=== PATIENT | female | born 1950 | race Caucasian/White ===

== ENCOUNTER 2016-05-27 09:42 | Inpatient (IN) | payer MEDICAID ==
--- NOTE | 2016-05-27 10:25 | CT ---
EXAMINATION TYPE: CT brain wo con for TPA DATE OF EXAM: 05/27/2016 10:19 AM COMPARISON: NONE HISTORY: Rt arm numbness and speech difficulty CT DLP: 1165 mGycm Automated exposure control for dose reduction was used. FINDINGS: There is an 13.4 mm colloid cyst in the anterior third ventricle. There is no hydronephrosis at this time. There is no mass effect or midline shift. I do not see evidence of intracranial blood. Visualized portions of the paranasal sinuses and mastoids are clear. No depressed skull fracture is s een. 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
[2016-05-27 10:56] LABS: Appearance,Urine Clear (Clear); Bilirubin,Urine Negative (Negative); Glucose,Urine (UA) Negative (Negative); Ketones,Urine Negative (Negative); Leukocyte Esterase,Urine Negative (Negative); Nitrite,Urine Negative (Negative); PH, Urine 5.5 (5.0-8.0); Protein,Urine Negative (Negative); Specific Gravity,Urine 1.002 (1.001-1.035); UA Billing (MACRO vs. MICRO) CHEM; Urobilinogen,Urine <2.0 mg/dL (<2.0)
[2016-05-27 10:59] LABS: Basophils # (A) 0.1 k/uL (0-0.2); Basophils % (A) 1 %; CH 30.8; Eosinophils # (A) 0.2 k/uL (0-0.7); Eosinophils % (A) 2 %; HCT 46.1 % (34.0-46.0); HGB 15.5 gm/dL (11.4-16.0); Luc # (Auto) 0.15; Luc % (Auto) 1; Lymphocytes # (A) 1.8 k/uL (1.0-4.8); Lymphocytes % (A) 17 %; MCH 30.6 pg (25.0-35.0); MCHC 33.7 g/dL (31.0-37.0); Mean Platelet Volume 8.9; Monocytes # (A) 0.5 k/uL (0-1.0); Monocytes % (A) 4 %; Neutrophils # (A) 8.4 k/uL (1.3-7.7); Neutrophils % (A) 76 %; RBC 5.07 m/uL (3.80-5.40); RDW 13.6 % (11.5-15.5); WBC 11.1 k/uL (3.8-10.6); WBC (Perox) 11.26
[2016-05-27 11:09] LABS: Anion Gap 13 mmol/L; Calcium 10.2 mg/dL (8.4-10.2); Carbon Dioxide 21 mmol/L (22-30); Chloride 107 mmol/L (98-107); Glucose 116 mg/dL (74-99); Non-African American GFR(MDRD) >60 (>60 ml/min/1.73 sqM); Sodium 141 mmol/L (137-145); Total Bilirubin 0.8 mg/dL (0.2-1.3); Total Protein 8.1 g/dL (6.3-8.2)
[2016-05-27 11:11] LABS: ALT 30 U/L (9-52); AST 26 U/L (14-36); Blood Urea Nitrogen 11 mg/dL (7-17); Potassium 4.4 mmol/L (3.5-5.1)
[2016-05-27 11:12] LABS: Alkaline Phosphatase 68 U/L (38-126)
--- NOTE | 2016-05-27 11:20 | XR ---
EXAMINATION TYPE: XR chest 2V DATE OF EXAM: 05/27/2016 11:09 AM HISTORY: altered mental status. REFERENCE: NONE. FINDINGS: The lungs are clear. Pleural space are clear. Heart size is normal. There is some unfolding of the thoracic aorta. IMPRESSION: NO ACUTE INTRATHORACIC ABNORMALITY.
[2016-05-27 11:22] LABS: Partial Thromboplastin Time 24.6 sec (22.0-30.0)
--- NOTE | 2016-05-27 12:01 | ED ---
Neuro HPI - General Chief Complaint: Neuro Symptoms/Deficit Stated Complaint: poss cva Time Seen by Provider: 05/27/16 09:56 Source: patient Mode of arrival: wheelchair Limitations: no limitations - History of Present Illness Is the patient presenting with stroke symptoms?: Yes Initial Comments: Patient complains of right-sided weakness, and facial droop. Her symptoms began last night. She noticed that they were worse this morning. Patient denies any fevers or chills. She has no neck pain or stiffness. She has no headache. She has no change in vision or hearing. She has no lightheadedness or dizziness. She denies any recent illnesses or sick contacts. She has no palpitations. She was not doing anything when she began to feel this way. She has taken no medication for her symptoms. Nothing makes her symptoms better or worse. States that she is having trouble writing with the right upper extremity. - Related Data Home Medications: Home Medications Medication Instructions Recorded Confirmed Ibuprofen/Diphenhydramine HCl 2 cap PO HS 05/27/16 05/27/16 [Advil Pm Liqui-Gels] Sinex Nasal [place] 1 spray EA NOSTRIL BID 05/27/16 05/27/16 Allergies/Adverse Reactions: Allergies Allergy/AdvReac Type Severity Reaction Status Date / Time No Known Allergies Allergy Verified 05/27/16 11:41 Review of Systems ROS Statement: Those systems with pertinent positive or pertinent negative responses have been documented in the HPI. ROS Other: All systems not noted in ROS Statement are negative. General Exam Limitations: no limitations General appearance: alert, in no apparent distress Head exam: Present: atraumatic, normocephalic, normal inspection Eye exam: Present: normal appearance, PERRL, EOMI. Absent: scleral icterus, conjunctival injection, periorbital swelling ENT exam: Present: normal exam, mucous membranes moist Neck exam: Present: normal inspection. Absent: tenderness, meningismus, lymphadenopathy Respiratory exam: Present: normal lung sounds bilaterally. Absent: respiratory distress, wheezes, rales, rhonchi, stridor Cardiovascular Exam: Present: regular rate, normal rhythm, normal heart sounds. Absent: systolic murmur, diastolic murmur, rubs, gallop, clicks GI/Abdominal exam: Present: soft, normal bowel sounds. Absent: distended, tenderness, guarding, rebound, rigid Extremities exam: Present: normal inspection, full ROM, normal capillary refill. Absent: tenderness, pedal edema, joint swelling, calf tenderness Back exam: Present: normal inspection Neurological exam: Present: alert, oriented X3, CN II-XII intact Psychiatric exam: Present: normal affect, normal mood Skin exam: Present: warm, dry, intact, normal color. Absent: rash Stroke MDM - Lab Data Result diagrams: 05/27/16 10:45 05/27/16 10:45 Lab Results 05/27/16 05/27/16 05/27/16 Range/Units 10:45 10:45 10:45 WBC 11.1 H (3.8-10.6) k/uL RBC 5.07 (3.80-5.40) m/uL Hgb 15.5 (11.4-16.0) gm/dL Hct 46.1 H (34.0-46.0) % MCV 91.0 (80.0-100.0) fL MCH 30.6 (25.0-35.0) pg MCHC 33.7 (31.0-37.0) g/dL RDW 13.6 (11.5-15.5) % Plt Count 172 (150-450) k/uL Neutrophils % 76 % Lymphocytes % 17 % Monocytes % 4 % Eosinophils % 2 % Basophils % 1 % Neutrophils # 8.4 H (1.3-7.7) k/uL Lymphocytes # 1.8 (1.0-4.8) k/uL Monocytes # 0.5 (0-1.0) k/uL Eosinophils # 0.2 (0-0.7) k/uL Basophils # 0.1 (0-0.2) k/uL PT (9.0-12.0) sec INR (<1.1) APTT (22.0-30.0) sec Sodium 141 (137-145) mmol/L Potassium 4.4 (3.5-5.1) mmol/L Chloride 107 (98-107) mmol/L Carbon Dioxide 21 L (22-30) mmol/L Anion Gap 13 mmol/L BUN 11 (7-17) mg/dL Creatinine 0.70 (0.52-1.04) mg/dL Est GFR (MDRD) Af Amer >60 (>60 ml/min/1.73 sqM) Est GFR (MDRD) Non-Af >60 (>60 ml/min/1.73 sqM) Glucose 116 H (74-99) mg/dL Calcium 10.2 (8.4-10.2) mg/dL Total Bilirubin 0.8 (0.2-1.3) mg/dL AST 26 (14-36) U/L ALT 30 (9-52) U/L Alkaline Phosphatase 68 (38-126) U/L Troponin I (0.000-0.034) ng/mL Total Protein 8.1 (6.3-8.2) g/dL Albumin 4.9 (3.5-5.0) g/dL Urine Color Colorless Urine Appearance Clear (Clear) Urine pH 5.5 (5.0-8.0) Ur Specific [place] 1.002 (1.001-1.035) Urine Protein Negative (Negative) Urine Glucose (UA) Negative (Negative) Urine Ketones Negative (Negative) Urine Blood Negative (Negative) Urine Nitrite Negative (Negative) Urine Bilirubin Negative (Negative) Urine Urobilinogen <2.0 (<2.0) mg/dL Ur Leukocyte Esterase Negative (Negative) Urine Opiates Screen Not Detected (NotDetected) Ur Oxycodone Screen Not Detected (NotDetected) Urine Methadone Screen Not Detected (NotDetected) Ur Propoxyphene Screen Not Detected (NotDetected) Ur Barbiturates Screen Not Detected (NotDetected) U Tricyclic Antidepress Not Detected (NotDetected) Ur Phencyclidine Scrn Not Detected (NotDetected) Ur Amphetamines Screen Not Detected (NotDetected) U Methamphetamines Scrn Not Detected (NotDetected) U Benzodiazepines Scrn Not Detected (NotDetected) Urine Cocaine Screen Not Detected (NotDetected) U Marijuana (THC) Screen Not Detected (NotDetected) 05/27/16 05/27/16 Range/Units 10:45 10:45 WBC (3.8-10.6) k/uL RBC (3.80-5.40) m/uL Hgb (11.4-16.0) gm/dL Hct (34.0-46.0) % MCV (80.0-100.0) fL MCH (25.0-35.0) pg MCHC (31.0-37.0) g/dL RDW (11.5-15.5) % Plt Count (150-450) k/uL Neutrophils % % Lymphocytes % % Monocytes % % Eosinophils % % Basophils % % Neutrophils # (1.3-7.7) k/uL Lymphocytes # (1.0-4.8) k/uL Monocytes # (0-1.0) k/uL Eosinophils # (0-0.7) k/uL Basophils # (0-0.2) k/uL PT 10.0 (9.0-12.0) sec INR 1.0 (<1.1) APTT 24.6 (22.0-30.0) sec Sodium (137-145) mmol/L Potassium (3.5-5.1) mmol/L Chloride (98-107) mmol/L Carbon Dioxide (22-30) mmol/L Anion Gap mmol/L BUN (7-17) mg/dL Creatinine (0.52-1.04) mg/dL Est GFR (MDRD) Af Amer (>60 ml/min/1.73 sqM) Est GFR (MDRD) Non-Af (>60 ml/min/1.73 sqM) Glucose (74-99) mg/dL Calcium (8.4-10.2) mg/dL Total Bilirubin (0.2-1.3) mg/dL AST (14-36) U/L ALT (9-52) U/L Alkaline Phosphatase (38-126) U/L Troponin I <0.012 (0.000-0.034) ng/mL Total Protein (6.3-8.2) g/dL Albumin (3.5-5.0) g/dL Urine Color Urine Appearance (Clear) Urine pH (5.0-8.0) Ur Specific [place] (1.001-1.035) Urine Protein (Negative) Urine Glucose (UA) (Negative) Urine Ketones (Negative) Urine Blood (Negative) Urine Nitrite (Negative) Urine Bilirubin (Negative) Urine Urobilinogen (<2.0) mg/dL Ur Leukocyte Esterase (Negative) Urine Opiates Screen (NotDetected) Ur Oxycodone Screen (NotDetected) Urine Methadone Screen (NotDetected) Ur Propoxyphene Screen (NotDetected) Ur Barbiturates Screen (NotDetected) U Tricyclic Antidepress (NotDetected) Ur Phencyclidine Scrn (NotDetected) Ur Amphetamines Screen (NotDetected) U Methamphetamines Scrn (NotDetected) U Benzodiazepines Scrn (NotDetected) Urine Cocaine Screen (NotDetected) U Marijuana (THC) Screen (NotDetected) - Medical Decision Making Patient presents with right-sided weakness. She does not have any weakness on my examination, but she states that she is having trouble writing with the right hand. CT of the head does not show any acute emergency, and laboratory studies are unremarkable. She will be admitted to the hospital for further evaluation and workup and a neurology consultation. 05/27/16 12:00 Twelve-lead EKG obtained, interpreted by me showing ventricular 102 bpm, normal MO interval and QRS complexes, no ST elevation or depression, interpreted by me as sinus tachycardia without acute ischemia. Past Medical History Past Medical History: No Reported History History of Any Multi-Drug Resistant Organisms: None Reported Past Surgical History: No Surgical Hx Reported Past Psychological History: No Psychological Hx Reported Smoking Status: Current every day smoker Past Alcohol Use History: Daily Past Drug Use History: None Reported Course Vital Signs 05/27/16 05/27/16 05/27/16 09:45 09:50 10:33 Temperature 97.6 F Pulse Rate 109 H 99 96 Respiratory 18 18 16 Rate Blood Pressure 230/120 250/134 234/100 O2 Sat by Pulse 98 97 96 Oximetry 05/27/16 10:59 Temperature Pulse Rate 92 Respiratory 16 Rate Blood Pressure 203/102 O2 Sat by Pulse 96 Oximetry Disposition Clinical Impression: Transient cerebral ischemia Disposition: ADMITTED IP TO THIS HOSP Condition: Fair Time of Disposition: 12:01
[2016-05-27] MEDS ORDERED: NALOXONE 0.4 MG/ML 1 ML VIAL IV PRN (12:02)
[2016-05-27] MEDS ORDERED: ONDANSETRON 4 MG/2 ML VIAL IVP PRN (12:02)
[2016-05-27] MEDS ORDERED: amLODIPine 10 MG TAB PO STA (12:28)
[2016-05-27] MEDS ORDERED: amLODIPine 5 MG TAB PO STA (12:31)
[2016-05-27] MEDS ORDERED: cloNIDine HCL 0.2 MG TAB PO STA (16:44)
[2016-05-27] MEDS ORDERED: LORazepam 0.5 MG TAB PO PRN (17:30)
[2016-05-27] MEDS ORDERED: ACETAMINOPHEN TAB 500 MG TAB PO PRN (17:30)
--- NOTE | 2016-05-27 18:05 | US ---
EXAMINATION TYPE: US carotid duplex BILAT DATE OF EXAM: 05/27/2016 5:11 PM COMPARISON: NONE CLINICAL HISTORY: Pain. right arm numbness x today, high BP EXAM MEASUREMENTS: RIGHT: Peak Systolic Velocity (PSV) cm/sec ----- Right CCA: 66.9 ----- Right ICA: 50.5 ----- Right ECA: 161.4 ICA/CCA ratio: 0.8 RIGHT: End Diastole cm/sec ----- Right CCA: 17.5 ----- Right ICA: 17.4 ----- Right ECA: 35.3 LEFT: Peak Systolic Velocity (PSV) cm/sec ----- Left CCA: 68.0 ----- Left ICA: 94.3 ----- Left ECA: 100.4 ICA/CCA ratio: 1.4 LEFT: End Diastole cm/sec ----- Left CCA: 25.2 ----- Left ICA: 33.5 ----- Left ECA: 28.0 VERTEBRALS (direction of flow): Right Vertebral: Antegrade Left Vertebral: Antegrade Plaque seen in left bulb extending into prox ICA. No significant stenosis. High velocity seen in rig ht ECA. Bilateral wall thickening IMPRESSION: No evidence of hemodynamically significant stenosis at either carotid system.
--- NOTE | 2016-05-27 18:06 | ECHOF ---
Referral Reason:tia MEASUREMENTS -------- HEIGHT: 165.1 cm WEIGHT: 90.7 kg BP: 243/143 IVSd: 1.4 cm (0.6 - 1.1) LVIDd: 4.5 cm (3.9 - 5.3) LVPWd: 1.5 cm (0.6 - 1.1) IVSs: 1.8 cm LVIDs: 2.9 cm LVPWs: 1.8 cm Ao Diam: 3.3 cm (2.0 - 3.7) AV Cusp: 2.2 cm (1.5 - 2.6) LA Diam: 3.0 cm (2.7 - 3.8) MV EXCURSION: 16.659 mm (> 18.000) MV EF SLOPE: 157 mm/s (70 - 150) EPSS: 0.5 cm MV E Tima: 1.24 m/s MV DecT: 168 ms MV A Tima: 0.36 m/s MV E/A Ratio: 3.43 FINDINGS -------- Sinus rhythm. This was a technically adequate study. The left ventricular size is normal. There is moderate concentric left ventricular hypertrophy. Overall left ventricular systolic function is normal with, an EF between 55 - 60 %. The right ventricle is normal in size. The left atrial size is normal. The right atrial size is normal. The aortic valve is trileaflet and appears structurally normal. Trace to mild aortic regurgitation. The mitral valve is normal. Mild mitral regurgitation is present. Mild tricuspid regurgitation present. There is no evidence of pulmonary hypertension. The right ventricular systolic pressure, as measured by Doppler, is {RVSP}. There is no pulmonic regurgitation present. The aortic root size is normal. There is no pericardial effusion. CONCLUSIONS -------- 1. Sinus rhythm. 2. There is no pericardial effusion. 3. There is moderate concentric left ventricular hypertrophy. 4. Overall left ventricular systolic function is normal with, an EF between 55 - 60 %. 5. The left atrial size is normal. 6. Trace to mild aortic regurgitation. 7. Mild mitral regurgitation is present. 8. Mild tricuspid regurgitation present. 9. There is no evidence of pulmonary hypertension. 10. The aortic root size is normal. PORTER BAGGAGE: Samira Edgar RDCS
[2016-05-27 18:31] VITALS: BMI 32.1
[2016-05-27] MEDS ORDERED: FAMOTIDINE 20 MG TAB PO SCH (21:00)
--- NOTE | 2016-05-27 21:11 | HP ---
DATE OF ADMISSION: 05/27/2016 CHIEF COMPLAINT: Weakness of the right-sided and also slurring of speech. 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 The patient thought that would get better. Patient went home and significant other also noticed that the patient had some deviation of the face and some slurring of speech also. This morning also the weakness of the right upper limb persisted and the patient came to [facility] emergency room and was admitted to the hospital for further evaluation and treatment. The patient had a CT scan of the brain which showed large cyst in the anterior aspect of the third ventricle. Chest x-ray showed no acute abnormality. There is no history of any fever, rigors or chills. No history of headache, loss of consciousness or seizures. PAST MEDICAL HISTORY: No significant medical illness. Current medications prior to admission. 1. Sinex Nasal spray. 2. Ibuprofen. 3. Diphenhydramine two capsules q.h.s. Allergies are none. FAMILY HISTORY: History of heart attack in father age 55. SOCIAL HISTORY: History of smoking on a daily basis. History of alcohol once in a while 5 to 6 drinks. REVIEW OF SYSTEMS: ENT: No diminishing hearing. No diminished vision. Otherwise as mentioned earlier. CARDIOVASCULAR: No angina or palpitations. RESPIRATORY: No coughing. No hemoptysis. GI: No nausea and vomiting. GENITOURINARY: No dysuria or hematuria. CENTRAL NERVOUS SYSTEM: As mentioned earlier. Allergy/immunology: No asthma or hayfever. MUSCULOSKELETAL: As mentioned earlier. HEMATOLOGY/ONCOLOGY: No history of anemia. ENDOCRINE: No history of diabetes, hypothyroidism. CONSTITUTIONAL: As mentioned earlier. DERMATOLOGY: Negative. RHEUMATOLOGY: Negative. PSYCHIATRY: As mentioned earlier. PHYSICAL EXAMINATION: Alert and oriented times three. Pulse is 101, blood pressure 215/123, respirations 18, temperature 97.9, pulse ox 94% on room air. HEENT: Conjunctivae normal. Oral mucosa moist. NECK: No jugular venous distention. No carotid bruit. No lymph node enlargement. CARDIOVASCULAR: S1, S2 muffled. No S3, no S4. RESPIRATORY: Breath sounds diminished at the bases. No rhonchi. No crackles. ABDOMEN: Soft, nontender. No mass palpable. Legs: No edema. No swelling. Nervous system: Higher functions as mentioned earlier. Cranial nerves right upper motor neuron facial palsy present otherwise upper limbs are grade 4 power, lower limbs are normal. No further diminished . Gait not tested. SKIN: No ulcer, rash or bleeding. LYMPHATICS: No lymph nodes palpable in the neck, axillae or groin. No sensory abnormalities. JOINTS: There is no active deforming arthropathy. LABS: At this time shows WBC 11.1, hemoglobin 15.5. Glucose 116. UA negative. ASSESSMENT: 1. Acute right hemiplegia caused by left hemispheric lesion, caused by acute cerebrovascular accident and stroke. 2. Dysarthria secondary from stroke. 3. Increased WBC. 4. Increased random blood sugar. 5. History of nicotine dependence. 6. History of ETOH. 7. FULL CODE. RECOMMENDATIONS AND DISCUSSION: In this 65-year-old woman who presented with multiple complex medical issues, we will monitor the patient closely. Continue the current medications and continue symptomatic treatment. Otherwise, at this time, would recommend antiplatelet agents. Complete neurovascular work-up, neurology consultation. hypertension, I would also recommend cardiology evaluation also. Otherwise, the prognosis is guarded because of multiple complex medical issues. Further recommendations to follow. If the initial work-up including carotid Doppler is negative, the patient may be candidate for the rhythm monitoring and LEDY as well. The prognosis is guarded because of multiple complex medical issues. Further recommendations to follow. I would also recommend the patient to follow up with the primary physician in the outpatient setting. Understands and agrees. Patient and significant other understands and agrees. I would also recommend smoking and alcohol cessation also. MTDD
[2016-05-27] MEDS: HEPARIN SODIUM,PORCINE 5,000 UNIT/ML 1 ML VIAL SQ SCH (22:50)
--- NOTE | 2016-05-27 23:26 | P.CNNES ---
History of Present Illness Consult date: 05/27/16 Reason for Consult: Patient with TIA symptoms and right sided weakness. History of Present Illness: This patient is a 65-year-old right-handed white female who apparently yesterday noted difficulty with the use of her hands. She states she was having difficulty using her hands to right and to hold things in the right hand especially. Donn both hands were giving her some difficulty. She also noted some difficulty with her speech which was noted by her boyfriend. She decided to come to the emergency room for further evaluation. She was seen in the ER at [facility] by Dr. Mayer. She was sent for a computed tomography scan of the brain which revealed a large colloid cyst in the third ventricle. No evidence of acute stroke or hemorrhage. Patient underwent a stroke evaluation in the ER by Dr. Mayer. An NIH stroke scale was noted to be 0. She was advised admission to the hospital for further evaluation. Patient is now in her room and states that she has no previous history of TIA or stroke. She denies any headache or symptoms of nausea vomiting. We did review the results of the CAT scan the brain with her and the finding of a call light system. She states she has never been told of any abnormality on imaging studies in the past. She is not clear if she has had a computed tomography scan of the brain previously. Patient was placed on aspirin yesterday and today. She is noted to have right-sided facial droop on exam. We have recommended a complete stroke evaluation for the patient. Her stroke risk factors include hypertension. She was hypertensive in the ER as well. We have recommended close monitoring of her blood pressures during this admission. The patient is now admitted and neurology has been consulted for further evaluation and recommendations. Review of Systems Constitutional: Denies chills, Denies fever Eyes: denies blurred vision, denies pain Ears, nose, mouth and throat: Denies headache, Denies sore throat Cardiovascular: Denies chest pain, Denies shortness of breath Respiratory: Denies cough Gastrointestinal: Denies abdominal pain, Denies diarrhea, Denies nausea, Denies vomiting Genitourinary: Denies dysuria, Denies hematuria Musculoskeletal: Denies myalgias Integumentary: Denies pruritus, Denies rash Neurological: Reports change in mentation, Reports change in speech, Reports confusion, Denies numbness, Denies weakness Psychiatric: Denies anxiety, Denies depression Endocrine: Denies fatigue, Denies weight change Past Medical History Past Medical History: No Reported History History of Any Multi-Drug Resistant Organisms: None Reported Past Surgical History: No Surgical Hx Reported Past Psychological History: No Psychological Hx Reported Smoking Status: Current every day smoker Past Alcohol Use History: Daily Past Drug Use History: None Reported Medications and Allergies Home Medications Medication Instructions Recorded Confirmed Type Ibuprofen/Diphenhydramine HCl 2 cap PO HS 05/27/16 05/27/16 History [Advil Pm Liqui-Gels] Sinex Nasal [place] 1 spray EA NOSTRIL BID 05/27/16 05/27/16 History Allergies Allergy/AdvReac Type Severity Reaction Status Date / Time No Known Allergies Allergy Verified 05/27/16 11:41 Physical Examination - Vital Signs Vital Signs: Vital Signs Temp Pulse Resp BP Pulse Ox 05/27/16 17:00 97 16 205/112 97 05/27/16 15:26 97.9 F 101 H 18 215/126 94 L 05/27/16 15:00 104 H 18 215/100 96 05/27/16 14:00 101 H 18 207/97 97 05/27/16 13:26 89 16 213/98 93 L 05/27/16 12:26 96 17 222/94 94 L - Constitutional General appearance: average body habitus, cooperative - EENT EENT: PERRL, mucous membranes moist - Respiratory Respiratory: lungs clear, normal breath sounds - Cardiovascular Cardiovascular: regular rate, normal S1, normal S2 Extremities: no peripheral edema bilaterally - Gastrointestinal Gastrointestinal: normoactive bowel sounds - Integumentary Integumentary: normal - Neurologic Cranial nerve examination: PERRL, EOMI, VFF, V1/V2/V3 grossly intact, tongue midline, intact gag reflex, intact corneal reflex, facial droop (Patient has a right upper motor neuron facial weakness.), normal palatal elevation Speech examination: intact Sensorimotor examination: intact Motor examination - right side: 4/5: biceps, triceps, wrist flexion, wrist extension, 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, hip flexors, knee extensors, dorsiflexion, toe extension (EHL) , plantarflexion Motor examination - left side: 5/5: biceps, triceps, wrist flexion, wrist extension, 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, hip flexors, knee extensors, dorsiflexion, toe extension (EHL) , plantarflexion Detailed sensory examination: intact Reflexes: 1+: ankle, bicep, knee, tricep - Musculoskeletal Musculoskeletal: no pain - Psychiatric Psychiatric: mood/affect appropriate, cooperative Results - Laboratory Findings CBC and BMP: 05/27/16 10:45 05/27/16 10:45 Assessment and Plan (1) Acute ischemic left middle cerebral artery (MCA) stroke Status: Acute Code(s): I63.512 - CEREB INFRC D/T UNSP OCCLS OR STENOS OF LEFT MID CEREB ART (2) Dysarthria Status: Acute Code(s): R47.1 - DYSARTHRIA AND ANARTHRIA (3) Uncontrolled hypertension Status: Acute Code(s): I10 - ESSENTIAL (PRIMARY) HYPERTENSION (4) TIA (transient ischemic attack) Status: Acute Code(s): G45.9 - TRANSIENT CEREBRAL ISCHEMIC ATTACK, UNSPECIFIED Plan: This patient is a 65-year-old female admitted with acute symptoms of right- sided facial droop and right hand weakness. She was brought into the emergency room today for further evaluation. She was seen in the ER by Dr. Mayer. His NIH stroke scale revealed her to have a score of 0. She underwent computed tomography scan of the brain in the ER which revealed no acute stroke or hemorrhage. There is evidence of a large colloid cyst in the third ventricle. No evidence of hydrocephalus. The patient was subsequent admitted to the hospital. Her neurological exam findings reveal her to have a right upper motor neuron facial weakness as well as right sided drift. Her clinical findings suggest probable acute left MCA stroke. We've recommended a complete stroke evaluation for the patient. Would recommend that she be placed on aspirin daily for secondary stroke prevention. Her overall prognosis at this time remains guarded. Time with Patient: Greater than 30
[2016-05-28 05:48] LABS: Basophils # (A) 0.1 k/uL (0-0.2); Basophils % (A) 1 %; CH 30.5; CHCM 33.7; Eosinophils # (A) 0.2 k/uL (0-0.7); Eosinophils % (A) 2 %; HCT 44.4 % (34.0-46.0); HDW 2.49; HGB 14.9 gm/dL (11.4-16.0); Luc # (Auto) 0.17; Luc % (Auto) 2; Lymphocytes # (A) 2.4 k/uL (1.0-4.8); Lymphocytes % (A) 23 %; MCH 30.4 pg (25.0-35.0); MCHC 33.4 g/dL (31.0-37.0); MCV 90.8 fL (80.0-100.0); Mean Platelet Volume 7.9; Monocytes # (A) 0.4 k/uL (0-1.0); Monocytes % (A) 4 %; Neutrophils # (A) 7.1 k/uL (1.3-7.7); Neutrophils % (A) 68 %; RBC 4.89 m/uL (3.80-5.40); RDW 13.5 % (11.5-15.5); WBC 10.4 k/uL (3.8-10.6); WBC (Perox) 11.12
[2016-05-28 05:59] LABS: Anion Gap 13 mmol/L; Blood Urea Nitrogen 11 mg/dL (7-17); Calcium 9.7 mg/dL (8.4-10.2); Carbon Dioxide 23 mmol/L (22-30); Chloride 105 mmol/L (98-107); Cholesterol 303 mg/dL (<200); Glucose 108 mg/dL (74-99); HDL Cholesterol 54 mg/dL (40-60); Non-African American GFR(MDRD) >60 (>60 ml/min/1.73 sqM); Potassium 4.1 mmol/L (3.5-5.1); Sodium 141 mmol/L (137-145); Triglycerides 390 mg/dL (<150)
[2016-05-28] MEDS: HEPARIN SODIUM,PORCINE 5,000 UNIT/ML 1 ML VIAL SQ SCH ×2 (08:35→21:12)
[2016-05-28] MEDS: PANTOPRAZOLE 40 MG TABLET PO SCH (08:35)
[2016-05-28] MEDS: amLODIPine 10 MG TAB PO SCH (08:35)
[2016-05-28] MEDS: ASPIRIN 81 MG CHEW PO SCH (10:27)
[2016-05-28] MEDS: ATORVASTATIN 80 MG TAB PO SCH (10:28)
[2016-05-28] MEDS: LISINOPRIL 5 MG TAB PO SCH ×2 (10:31→21:13)
[2016-05-28] MEDS: HYDROCHLOROTHIAZIDE 25 MG TAB PO SCH (10:31)
--- NOTE | 2016-05-28 13:50 | CONS ---
DATE OF CONSULTATION: Mrs. Escalona is a 65-year-old female who does not follow with a physician, who presented with drooping on the right side of face and some weakness in the right upper extremity, was diagnosed with CVA. Cardiology consultation was requested for further cardiac evaluation. Patient is average in her exercise tolerance, has no exertional chest pain. He has no prior history of cardiac disease. She denies any arrhythmia. She has no significant dyspnea on exertion. She has no palpitation. No dizziness. No syncope. No PND, orthopnea. No peripheral edema. Her coronary risk factor is remarkable for smoking. Her lipid profile was quite abnormal and her blood pressure was quite elevated on presentation, although she has not been seen seeing a physician or taking any medication. SOCIAL HISTORY: She drinks alcohol 4 to 5 drinks every other day, smokes at least a pack a day. Her medications at home are ibuprofen. REVIEW OF SYSTEMS: RESPIRATORY SYSTEM: She has no documented obstructive lung disease, yet she smokes on a regular basis, does not exercise regularly. GI SYSTEM: No recent GI bleeding. No peptic ulcer disease. SYSTEM: No dysuria or hematuria. NERVOUS SYSTEM: No history of stroke or seizure in the past. PHYSICAL EXAMINATION: She is a 65-year-old female, alert, oriented, in no apparent distress. Her blood pressure quite elevated in the range of 180/100 with the heart rate in the 90s. HEAD: Normocephalic. EYES: Sclerae nonicteric. NECK: No bruit. LUNGS: Clear to auscultation. HEART: Regular rate and rhythm, S1 and S2, no S3 with systolic murmur. No diastolic murmur. No rub. ABDOMEN: Soft, nontender. Positive bowel sounds. No organomegaly. EXTREMITIES: No edema. Intact distal pulses. Lab data revealed a troponin less than 0.012, cluster of 303, LDL of 171, BUN and creatinine of 11 and 0.65. Hemoglobin of 14.9. Potassium 4.1. EKG revealed sinus mechanism with no acute changes and left axis deviation. Carotid duplex scan revealed no evidence of high-grade stenosis. Echocardiogram revealed preserved left ventricular size and systolic function with mild mitral and tricuspid regurgitation. CONCLUSION: 1. Cerebrovascular accident with right hand weakness and drooping in the right side of face. 2. Hypertension, untreated, uncontrolled. 3. Hyperlipidemia. 4. Chronic tobacco use. 5. Chronic alcohol intake. RECOMMENDATION: I will add to her regimen an COLT inhibitor to optimize her blood pressure control as well as hydrochlorothiazide. I will add a statin. The patient has no evidence to suggest arrhythmia. No paradoxical emboli. At this time, I will follow her blood pressure, increase her level of activity and depending on her progress, further recommendation will be made. The importance of smoking and alcohol cessation was discussed with the patient. Thank you for this consult. Will follow with you.
[2016-05-28] MEDS: ALPRAZolam 0.25 MG TAB PO PRN ×2 (15:17→21:16)
--- NOTE | 2016-05-28 15:54 | P.PN ---
Subjective This patient is a 65-year-old female who was admitted to hospital yesterday with possible acute TIA symptoms. Patient's initial symptoms was related to right hand weakness. She was unable to use her right hand to do simple things at home. She was also noted to have some slurring of her speech. She was brought into the emergency room and was seen by Dr. Mayer. His evaluation revealed her NIH stroke scale to be 0. 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 No other abnormalities or acute stroke was identified. Patient has no history of headaches or nausea vomiting symptoms. On examination yesterday she was noted to have right facial droop as well as right arm drift. These findings suggest possibility of acute stroke. She is awaiting to undergo MRI of the brain for further evaluation. She has been started on aspirin for secondary stroke prevention. Her neurological exam findings are unchanged from yesterday. 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 She seems to be doing about the same neurologically today. We will continue close neurological follow-up for the patient during this admission. Objective - Vital Signs Vital signs: Vital Signs Temp 97.9 F 05/28/16 08:00 Pulse 78 05/28/16 10:30 Resp 16 05/28/16 10:30 BP 174/107 05/28/16 10:30 Pulse Ox 97 05/28/16 08:00 Intake & Output 05/27/16 05/28/16 05/28/16 18:59 06:59 18:59 Intake Total 0 120 Balance 0 120 Weight 90.1 kg 78.7 kg Intake: Oral 0 120 Other: Voiding Method Toilet # Voids 0 2 0 - Exam Physical examination: PHYSICAL EXAMINATION: Patient is resting comfortably in bed. VITAL SIGNS: Blood pressure is [174/107]. Heart rate is [78]. Respiration is [16 ]. Temperature is [97.9]. HEENT: Head is atraumatic, neck is supple, there were no carotid bruits. CHEST: Lungs are clear to auscultation and percussion. CARDIAC: S1, S2 normal rate and rhythm. There is no murmur. ABDOMEN: Soft and nontender. Bowel sounds are present. EXTREMITIES: There is no pedal edema. Peripheral pulses are present. Neurological examination: Patient's neurological examination remains unchanged from yesterday. - Labs CBC & Chem 7: 05/28/16 05:35 05/28/16 05:35 Labs: Abnormal Lab Results - Last 24 Hours (Table) 05/28/16 Range/Units 05:35 Glucose 108 H (74-99) mg/dL Triglycerides 390 H (<150) mg/dL Cholesterol 303 H (<200) mg/dL LDL Cholesterol, Calc 171 H (0-99) mg/dL Assessment and Plan (1) Acute ischemic left middle cerebral artery (MCA) stroke Status: Acute Code(s): I63.512 - CEREB INFRC D/T UNSP OCCLS OR STENOS OF LEFT MID CEREB ART (2) Dysarthria Status: Acute Code(s): R47.1 - DYSARTHRIA AND ANARTHRIA (3) Uncontrolled hypertension Status: Acute Code(s): I10 - ESSENTIAL (PRIMARY) HYPERTENSION (4) TIA (transient ischemic attack) Status: Acute Code(s): G45.9 - TRANSIENT CEREBRAL ISCHEMIC ATTACK, UNSPECIFIED Plan: This patient is a 65-year-old female who was admitted to the hospital with right hand weakness and possible TIA. Patient was seen in neurology consultation yesterday. She underwent a initial evaluation in the emergency room by Dr. Mayer. Her NIH stroke scale was noted to be 0. 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 No evidence of acute stroke or hemorrhage. Patient's neurological findings yesterday revealed right facial droop as well as right pronator drift. She is being evaluated for possible acute left hemispheric stroke. She does have evidence of uncontrolled hypertension which is to be closely monitored. We will continue further stroke workup for this patient. She is scheduled to have MRI of the brain done tomorrow and we will need to review these test results with the patient. Her neurological examination is unchanged from yesterday. She is to continue on aspirin daily for secondary stroke prevention. Her overall prognosis at this time remains guarded.
--- NOTE | 2016-05-28 16:03 | PN ---
DATE OF SERVICE: 05/28/2016 This is a 65-year-old gentleman admitted because of the right side of the body has left cerebral infarction, possibly the carotid Doppler showed significant plaque formation in the bulb on the left IC but no hemodynamically significant stenosis. A 2-D echo with a Doppler showed ejection fraction of 55% to 60% with mild valvular abnormalities and left ventricular hypertrophy. The EKG showed sinus tachycardia and left atrial enlargement, ST-T changes also. Past medical history reviewed. REVIEW OF SYSTEMS: CARDIOVASCULAR: No angina or palpitation. GI: As mentioned earlier. : No dysuria. NERVOUS SYSTEM: No focal deficits. Current medications: 1. Tylenol 500 mg q.6. 2. Xanax 0.25. 3. Norvasc. 4. Aspirin 81 mg daily. 5. Heparin 5000 subQ b.i.d. 6. HydroDiuril 25 mg daily. 7. Zestril 5 mg b.i.d. 8. Ativan. 9. Narcan. 10. Protonix. PHYSICAL EXAMINATION: Patient is alert and oriented x3. Pulse 97, blood pressure 181/01, respiration 16, temperature 97.8, pulse ox 97% on room air. HEENT: Conjunctivae normal. Oral mucosa moist. NECK: No jugular venous distension, no lymph node enlargement. CARDIOVASCULAR SYSTEM: S1, S2, muffled. RESPIRATORY: Breath sounds diminished at the bases. No rhonchi. No crackles. Abdomen is soft, nontender. No mass palpable. EXTREMITIES: Legs no edema, no swelling. NERVOUS SYSTEM: Higher function as mentioned earlier. Cranial nerves, right upper motor neuron facial palsy present, because of the right upper limb grade 4+ in the right lower lobe; otherwise, no incoordination, no sensory abnormalities. Otherwise, joints, no active deformity or arthropathy. LYMPHATICS: No lymph node enlargement in the neck, axillae or groin. SKIN: No ulcer, rash or bleeding. LABS: WBC is 10.4, hemoglobin is 14.9 and glucose 108, triglycerides 390 and cholesterol 303 and LDL is 171. HDL is 54. ASSESSMENT: 1. Acute right hemiplegia caused by left hemispheric circulation, possibly caused by acute cerebrovascular accident and stroke. 2. Dysarthria secondary to stroke. 3. Hyperlipidemia. 4. Hypertriglyceridemia. 5. Increased WBC. 6. Increased random blood sugar. 7. History of nicotine dependence. 8. History of Ethyl alcohol. 9. FULL CODE. 10. Increased random blood sugar. RECOMMENDATION: In this 65-year-old woman who presented with multiple complex medical issues, will monitor the patient closely, continue the current medications, continue with the symptomatic treatment. Continue with aspirin 81, Lipitor 80 mg. Cardiology input appreciated. Will monitor blood pressure closely. Otherwise, follow closely with Neurology. Prognosis guarded. Neurovascular work-up will be continued including MRI. Guarded prognosis. Further recommendations to follow. Significant plaque on the left side was noted even though there is no significant stenosis. Once again, guarded prognosis and further recommendations to follow.
[2016-05-28 20:57] LABS: Glucose,Whole Blood 114 mg/dL (75-99)
[2016-05-29] MEDS: PANTOPRAZOLE 40 MG TABLET PO SCH (06:51)
[2016-05-29 07:07] LABS: Anion Gap 14 mmol/L; Blood Urea Nitrogen 14 mg/dL (7-17); Calcium 10.2 mg/dL (8.4-10.2); Carbon Dioxide 23 mmol/L (22-30); Chloride 102 mmol/L (98-107); Glucose 95 mg/dL (74-99); Non-African American GFR(MDRD) >60 (>60 ml/min/1.73 sqM); Sodium 139 mmol/L (137-145)
[2016-05-29] MEDS: HEPARIN SODIUM,PORCINE 5,000 UNIT/ML 1 ML VIAL SQ SCH ×2 (08:12→19:53)
[2016-05-29] MEDS: ATORVASTATIN 80 MG TAB PO SCH (08:13)
[2016-05-29] MEDS: LISINOPRIL 5 MG TAB PO SCH ×2 (08:13→20:39)
[2016-05-29] MEDS: ASPIRIN 81 MG CHEW PO SCH (08:13)
[2016-05-29] MEDS: amLODIPine 10 MG TAB PO SCH (08:13)
[2016-05-29] MEDS: HYDROCHLOROTHIAZIDE 25 MG TAB PO SCH (08:13)
[2016-05-29] MEDS: ALPRAZolam 0.25 MG TAB PO PRN ×3 (08:19→23:01)
--- NOTE | 2016-05-29 12:37 | MR ---
EXAMINATION TYPE: MR brain wo con DATE OF EXAM: 05/29/2016 12:21 PM COMPARISON: CT brain from 2 days ago HISTORY: Acute left hemispheric stroke, Rt hand weakness on admission 2 days ago TECHNIQUE: Multiplanar, multisequence imaging of the brain and brainstem is performed without IV cont rast. FINDINGS: Diffusion weighted images small oval area of increased signal on diffusion weighted images with the d iminished signal on ADC mapping involving the anterolateral left thalamus that shows T2 hyperintensit y and T1 hypointensity measuring roughly 8 x 3 mm just posterior to the left basal ganglia seen best on image 120 series 305 consistent with evolving acute lacunar infarct. There is no worrisome extraaxial fluid collection or significant white matter signal abnormality. Th e ventricular system and cisternal spaces are normal in size and appearance. The brain volume is age appropriate. There is redemonstration of T1 hyperintense and T2 hypointense 9 mm lesion in the anter ior aspect of the third ventricle at level of foramen of Diaz consistent with colloid cyst. No obst ructive hydrocephalus is clearly identified. No significant change from recent CT is seen. There are scattered foci of T2 hyperintensity seen throughout the white matter bilaterally. Approximately 50 sc attered small lesions are present. Lesions are nonspecific in appearance and distribution. Midline structures demonstrate normal morphology. The craniocervical junction appears within normal limits. Normal vascular flow voids are present. The visualized sinuses are clear and the globes are i ntact. IMPRESSION: 1. Evolving acute lacunar infarct left anterolateral thalamus as detailed above. 2. Moderate nonspecific white matter changes presumed on basis of product of chronic small vessel isc hemic change in patient of this age. 3. A 1 cm intraventricular lesion consistent with colloid cyst redemonstrated. No obstructive hydroce phalus noted. A Yellow message has been communicated to Manuel Kaplan MD~[id number] via the [employer] system on 05/29/2016 12:35 PM, Message ID [id number].
--- NOTE | 2016-05-29 15:08 | FL ---
EXAMINATION TYPE: FL barium swallow w video DATE OF EXAM: 05/29/2016 2:52 PM MODIFIED SWALLOW / DEGLUTITION STUDY CLINICAL HISTORY: Dysphagia. Acute CVA. TECHNIQUE: Deglutition study is performed utilizing thin liquid barium, honey and nectar thick liqui d barium, barium thick applesauce, and barium coated cracker. A total of 1 minute 90 minutes of fluor oscopic time was utilized during procedure. COMPARISON: None. FINDINGS: The oral and pharyngeal phases show satisfactory initiation and propagation with all modali ties tested. Normal mastication is seen with solid modalities tested. There is no evidence of penet ration or aspiration with any modality tested. No significant pharyngeal residue was appreciated. IMPRESSION: Normal deglutition study. Please refer to speech therapist notes for further details if necessary.
--- NOTE | 2016-05-29 18:36 | PN ---
DATE OF SERVICE: 05/29/2016 This 65-year-old woman was admitted with significant stroke of the right upper limb as well as face. She is scheduled to have an MRA today. Seen and evaluated the patient along with the nurse practitioner. Please refer to the nurse practitioner's notes and impressions documented as a scribe for further information. Further recommendations to follow.
--- NOTE | 2016-05-29 18:52 | P.PN ---
Subjective Date of service 05/29/2016. Progress note dictated for Dr. Flores. Interval history: This is a 65-year-old female admitted with acute CVA, hypertension and multiple other medical issues in a patient with ongoing nicotine use as well as daily alcohol. Evaluated by neurology with neuro workup in progress. Underwent MRI of the brain and modified barium swallow with results pending. Evaluated by cardiology, recommendations noted. Objective - Vital Signs Vital signs: Vital Signs Temp 97.5 F L 05/28/16 20:00 Pulse 73 05/29/16 08:00 Resp 16 05/29/16 11:32 BP 139/79 05/29/16 08:00 Pulse Ox 96 05/29/16 08:00 Intake & Output 05/28/16 05/29/16 05/29/16 18:59 06:59 18:59 Intake Total 120 0 790 Balance 120 0 790 Weight 77.5 kg Intake: IV 0 NS 0 Oral 120 790 Other: Voiding Method Toilet # Voids 0 1 # Bowel Movements 0 - Exam PHYSICAL EXAM: VITAL SIGNS: As above GENERAL: [Sitting up in bed, no acute distress] HEENT: [Pupils equal conjunctiva normal. Mild right facial palsy present] NECK: [Supple, no JVD, no lymph node enlargement] RESPIRATORY EFFORT:[Normal] LUNGS: [Clear to auscultation, no wheezes crackles or rhonchi] CARDIOVASCULAR[regular S1 and S2, no murmurs rubs or gallops, no edema] GI: [Abdomen soft, nontender, positive bowel sounds.] PSYCH: [Alert and oriented -3, mood and affect normal.] NEURO: [No focal deficits, speech intact, right upper extremity grade 4+, minimal right facial palsy present as mentioned above. Otherwise, Strength and sensation grossly intact.] - Labs CBC & Chem 7: 05/28/16 05:35 05/29/16 05:56 Labs: Abnormal Lab Results - Last 24 Hours (Table) 05/28/16 Range/Units 20:37 POC Glucose (mg/dL) 114 H (75-99) mg/dL Assessment and Plan Plan: 1. Acute right atrial fibrillation secondary to left hemispheric circulation caused by acute CVA, stroke 2. [Dysarthria secondary to stroke]. 3. [Hyperlipidemia]. 4. [Hypertriglyceridemia]. 5. [Leukocytosis]. 6. [Ongoing nicotine abuse]. 7. [Daily alcohol consumption]. 8. Hypertension, untreated, uncontrolled Plan: Continue on current medication regime , aspirin, statin, monitoring and symptomatic treatment. Close monitoring of blood pressure. Follow closely with multiple consults. Neuro workup in progress, final results of MBS and MRI pending. Discharge planning in progress for tomorrow, tentatively. Prognosis guarded given multiple complex medical issues. Smoking and alcohol cessation readdressed. The impression and plan of care has been dictated as directed. : I performed a H&P examination of this patient and discussed the same with the dictator. I agree with the dictator's note. Any additional findings/opinions/ etc. will be noted.
--- NOTE | 2016-05-29 22:18 | P.PN ---
Subjective This patient is a 65-year-old female who was admitted to hospital yesterday with possible acute TIA symptoms. Patient's initial symptoms was related to right hand weakness. She was unable to use her right hand to do simple things at home. She was also noted to have some slurring of her speech. She was brought into the emergency room and was seen by Dr. Mayer. His evaluation revealed her NIH stroke scale to be 0. 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 No other abnormalities or acute stroke was identified. Patient has no history of headaches or nausea vomiting symptoms. On examination yesterday she was noted to have right facial droop as well as right arm drift. These findings suggest possibility of acute stroke. She is awaiting to undergo MRI of the brain for further evaluation. She has been started on aspirin for secondary stroke prevention. Her neurological exam findings are unchanged from yesterday. 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 She seems to be doing about the same neurologically today. Patient underwent MRI of the brain today which was reviewed. MRI does reveal evidence of any acute lacunar infarct in the left anterior thalamus region. This is consistent with her findings of right-sided hemiparesis. She also underwent a barium swallow study which was normal. Patient to continue with ongoing PT/OT evaluation. We reviewed the results of the MRI today with the patient in detail. She is to continue on aspirin for secondary stroke prevention. We will continue close neurological follow-up for the patient during this admission. Her overall prognosis at this time remains guarded. Objective - Vital Signs Vital signs: Vital Signs Temp 97.5 F L 05/28/16 20:00 Pulse 67 05/29/16 20:00 Resp 17 05/29/16 20:00 BP 130/82 05/29/16 20:00 Pulse Ox 100 05/29/16 20:00 Intake & Output 05/29/16 05/29/16 05/30/16 06:59 18:59 06:59 Intake Total 0 790 0 Balance 0 790 0 Weight 77.5 kg Intake: IV 0 0 NS 0 0 Oral 790 Other: Voiding Method Toilet # Voids 1 - Exam Physical examination: PHYSICAL EXAMINATION: Patient is resting comfortably in bed. VITAL SIGNS: Blood pressure is [130/82]. Heart rate is [67]. Respiration is [17] . Temperature is [97.5]. HEENT: Head is atraumatic, neck is supple, there were no carotid bruits. CHEST: Lungs are clear to auscultation and percussion. CARDIAC: S1, S2 normal rate and rhythm. There is no murmur. ABDOMEN: Soft and nontender. Bowel sounds are present. EXTREMITIES: There is no pedal edema. Peripheral pulses are present. Neurological examination: Patient's neurological examination remains unchanged from yesterday. Patient continues to demonstrate right-sided facial weakness. Right hand dark room attendant strength slightly improved. - Labs CBC & Chem 7: 05/28/16 05:35 05/29/16 05:56 Assessment and Plan (1) Acute ischemic left middle cerebral artery (MCA) stroke Status: Acute Code(s): I63.512 - CEREB INFRC D/T UNSP OCCLS OR STENOS OF LEFT MID CEREB ART (2) Dysarthria Status: Acute Code(s): R47.1 - DYSARTHRIA AND ANARTHRIA (3) Uncontrolled hypertension Status: Acute Code(s): I10 - ESSENTIAL (PRIMARY) HYPERTENSION (4) TIA (transient ischemic attack) Status: Acute Code(s): G45.9 - TRANSIENT CEREBRAL ISCHEMIC ATTACK, UNSPECIFIED Plan: This patient is a 65-year-old female initially admitted to Hospital with symptoms of right hand weakness and dysarthric speech. She has undergone a complete stroke evaluation today. She was able to complete MRI of the brain which reveals evidence of a acute lacunar infarct in the left thalamus. This is consistent with her neuro deficits on examination. Patient underwent barium swallow study which was normal. We are recommending patient to continue on aspirin daily for secondary stroke prevention. Patient should be evaluated by PT/OT and speech therapy for further assessment. We will continue close neuro checks for this patient. Results of the MRI and barium swallow study was reviewed today with the patient in detail. Her overall prognosis at this time remains guarded.
[2016-05-30] MEDS: PANTOPRAZOLE 40 MG TABLET PO SCH (06:42)
[2016-05-30] MEDS: amLODIPine 10 MG TAB PO SCH (09:22)
[2016-05-30] MEDS: HYDROCHLOROTHIAZIDE 25 MG TAB PO SCH (09:22)
[2016-05-30] MEDS: HEPARIN SODIUM,PORCINE 5,000 UNIT/ML 1 ML VIAL SQ SCH (09:22)
[2016-05-30] MEDS: ASPIRIN 81 MG CHEW PO SCH (09:22)
[2016-05-30] MEDS: LISINOPRIL 5 MG TAB PO SCH (09:22)
[2016-05-30] MEDS: ATORVASTATIN 80 MG TAB PO SCH (09:22)
[2016-05-30 09:34] VITALS: BP 137/85; PULSE 92; RESP 18; TEMP 96.7
[2016-05-30] MEDS: ALPRAZolam 0.25 MG TAB PO PRN (10:13)
--- NOTE | 2016-05-30 14:08 | P.PN ---
Subjective Principal diagnosis: Acute CVA This is a 65-year-old history of hypertension, hyperlipidemia, nicotine dependence, and EtOH use, who presented to the hospital with symptoms of right facial droop and right upper extremity weakness. MRI of the brain did reveal an acute lacunar infarct. Echocardiogram with Doppler study was performed which revealed an ejection fraction of 55-60%. Hemodynamically stable. Planning on being discharged home today. Patient has much more strength in her right hand, right facial droop persists however improved. Objective - Vital Signs Vital signs: Vital Signs Temp 96.7 F L 05/30/16 09:22 Pulse 92 05/30/16 09:22 Resp 18 05/30/16 09:22 BP 137/85 05/30/16 09:22 Pulse Ox 93 L 05/30/16 09:22 Intake & Output 05/29/16 05/30/16 05/30/16 18:59 06:59 18:59 Intake Total 790 0 Balance 790 0 Weight 78.2 kg Intake: IV 0 NS 0 Oral 790 Other: Voiding Method Toilet Toilet # Voids 1 1 - Exam PHYSICAL EXAMINATION: HEENT: Head is atraumatic, normocephalic. Pupils equal, round. Neck is supple. There is no elevated jugular venous pressure. HEART EXAMINATION: Heart S1, S2 normal. No murmur or gallop heard. CHEST EXAMINATION: Lungs are clear to auscultation and precussion. No chest wall tenderness is noted on palpation or with deep breathing. ABDOMEN: Soft, nontender. Bowel sounds are heard. No organomegaly noted. EXTREMITIES: 2+ peripheral pulses with no evidence of peripheral edema and no calf tenderness noted. NEUROLOGIC patient is awake, alert and oriented -3. Mild right hand weakness persists, mild right facial droop . - Labs CBC & Chem 7: 05/28/16 05:35 05/29/16 05:56 Assessment and Plan (1) Hyperlipemia Status: Chronic (2) Nicotine dependence Status: Chronic (3) Acute ischemic left middle cerebral artery (MCA) stroke Status: Acute (4) Uncontrolled hypertension Status: Acute Plan: From cardiology's perspective, patient may be able to be discharged home today. We will make her a follow-up appointment to see Dr. Camp in the office post discharge. DNP note has been reviewed, I agree with a documented findings and plan of care. Patient was seen and examined.
--- NOTE | 2016-05-31 10:55 | DS ---
DATE OF ADMISSION: 05/27/2016 DATE OF DISCHARGE: 05/30/2016 FINAL DIAGNOSES: 1. Acute right hemiparesis secondary to left hemispheric lesion and acute cerebrovascular accident. 2. Dysarthria secondary to stroke. 3. Hyperlipidemia. 4. Hypertriglyceridemia. 5. Leukocytosis. 6. Ongoing nicotine dependence. 7. History of EtOH. 8. Hypertension, uncontrolled. 9. FULL CODE. 10. Hypertensive urgency. DISCHARGE DISPOSITION: The patient will be discharged in stable condition with guarded prognosis. HISTORY OF PRESENT ILLNESS: This 65-year-old woman with a past medical history of multiple medical problems was admitted with features of acute stroke involving the right side of the face and right arm. Patient was treated symptomatically. MRI showed corresponding lesion in the left hemisphere treated with antiplatelet agents. On exam, vitals are stable. CARDIOVASCULAR: S1 and S2 muffled. ABDOMEN: Soft. NERVOUS SYSTEM: Minimal weakness of the right arm and as well as dysarthria also present, much improved. Cholesterol is 303. LDL is 171. Dr. Kaplan saw the patient and cleared the patient for discharge. The following advice and medications are recommended: 1. Diet is cardiac, low fat, low cholesterol. 2. Follow up with Dr. Kaplan in 2 to 3 days. 3. Follow up with Dr. Barba in 2 to 3 days. Medications are: 1. Nasal spray as before. 2. Aspirin 81 mg p.o. daily. 3. Lipitor 80 mg p.o. daily. 4. HydroDIURIL 25 mg p.o. daily. 5. Ativan 0.5 mg t.i.d. 6. Zestril 5 mg p.o. b.i.d. 7. Protonix 40 mg daily. 8. Norvasc 10 mg p.o. daily. Once again, the patient will be discharged in a stable condition with guarded prognosis.
--- NOTE | 2016-06-02 22:33 | EEG ---
DATE OF SERVICE: 05/29/2016 INDICATIONS FOR EXAMINATION: This patient is a 65-year-old female being evaluated for right-sided hemiparesis and right-sided facial droop. The patient with possible acute stroke findings. AGE: 65Y EEG FINDINGS: A routine 21-channel, awake digital EEG recording was accomplished utilizing the 10-20 international system with bipolar and referential montages. The background activity in the most alert resting state consists of a low to medium amplitude, fairly well-developed and well-sustained 8 Hz activity over the posterior head regions. This posterior rhythm attenuates to eye opening. There is a small amount of low amplitude 18-20 Hz beta activity seen maximally over the anterior head regions. Muscle and movement artifact was observed on a few occasions during the tracing. Hyperventilation was not performed. Photic stimulation at flash frequencies of 2-30 Hz produced a good symmetrical occipital driving response. No epileptiform discharges were seen. IMPRESSION: This EEG is within normal limits for the patient's age. The EEG failed to reveal any focal, lateralized or epileptiform abnormalities. Clinical correlation is recommended.
== END 2016-05-30 12:22 | disposition home or self-care (01) | DRG 65 ==
LOC: EC 09:42 → 6SEL 12:02
PROVIDERS: ADMIT Internal Medicine; ATTEND Internal Medicine
DX: I63.512 Cerebral infarction due to unspecified occlusion or stenosis of left middle cerebral artery (principal); G81.91 Hemiplegia, unspecified affecting right dominant side; I11.9 Hypertensive heart disease without heart failure; Q04.6 Congenital cerebral cysts; I16.0 Hypertensive urgency; E78.1 Pure hyperglyceridemia; I08.1 Rheumatic disorders of both mitral and tricuspid valves; R73.09 Other abnormal glucose; D72.829 Elevated white blood cell count, unspecified; E78.5 Hyperlipidemia, unspecified; R00.0 Tachycardia, unspecified; R29.810 Facial weakness; R47.1 Dysarthria and anarthria; R29.700 NIHSS score 0; F17.200 Nicotine dependence, unspecified, uncomplicated; Z82.49 Family history of ischemic heart disease and other diseases of the circulatory system; Z71.6 Tobacco abuse counseling; Z71.89 Other specified counseling
CPT/HCPCS: 36415; 70450; 70551; 71020; 74230; 80048; 80053; 80061; 80306; 81003; 84484; 85025; 85610; 85730; 93005; 93306; 93880; 95819; 99285

== ENCOUNTER → 2016-09-08 | Outpatient (CLI) | payer MEDICARE ==
--- NOTE | 2016-09-08 08:27 | US ---
EXAMINATION TYPE: US liver DATE OF EXAM: 09/08/2016 COMPARISON: NONE CLINICAL HISTORY: 66-year-old female with R79 ABN LABS. The patient put on multiple meds in May due to heart attack. TECHNIQUE: Multiple sonographic images of the right upper quadrant are obtained. FINDINGS: Liver Length: 13.7 cm Gallbladder Wall: 0.2 cm CBD: 0.4 cm Right Kidney: 11.5 x 4.8 x 5.1 cm Pancreas: Most of the pancreas is visualized and appears within normal limits. Liver: Normal homogeneous echotexture without focal lesion. Gallbladder: No abnormal distention, wall thickening, pericholecystic fluid, or shadowing calculi. Evidence for sonographic Mae's sign: No CBD: wnl Right Kidney: No hydronephrosis. IMPRESSION: Unremarkable sonographic examination of the right upper quadrant.
== END | disposition home or self-care (01) ==
LOC: RADUSWWP 06:53
PROVIDERS: ATTEND Family Medicine
DX: R79.9 Abnormal finding of blood chemistry, unspecified (principal)
CPT/HCPCS: 76705